=== PATIENT | female | born 1975 | race Asian ===

== ENCOUNTER 2020-01-18 22:17 | Inpatient (IN) | payer BC ==
[~2020-01-18] VITALS: Ht 162.6 cm; Wt 65.8 kg
[2020-01-18 22:24] VITALS: BP_SYST 148
--- NOTE | 2020-01-18 22:28 | NUR ---
Patient to ER bed 03 to gown for evaluation. Side rails up.
--- NOTE | 2020-01-18 22:30 | NUR ---
# 18 gauge angiocath placed to L AC. Use of asceptic technique. Opsite placed over site. Blood return noted. Blood for lab drawn from site. Flushed with 10 cc of normal saline. No evidence of infiltration noted. Patient tolerated well.
--- NOTE | 2020-01-18 22:30 | NUR ---
PATIENT PRESENTS TO ER WITH C/O BEING TOLD BY PRIMARY CARE DOCTOR TO REPORT TO ER FOR HEMOGLOBIN OF 6.1 THAT WAS DRAWN EARLIER TODAY. PATIENT STATES INCREASED FATIGUE, DIZZINESS AND WEAKNESS. PATIENT PRESENTS WITH PALENESS. PATIENT STATES SHE HAS HEAVY MENSTRAL PERIODS AND STATES SHE HAS RECIEVED A BLOOD TRANSFUSION 10 YEARS AGO. PATIENT CONNECTED TO DISPLAYER AND PLACED IN HOSPITAL GOWN. PATIENT A&OX4. GCS 15. BILATERAL PUPILS PERRLA. LUNGS CTAB WITH NO USE OF ACCESSORY MUSCLES. VSS. PATIENT DENIES NVD. PMSC NOTED IN ALL FOUR QUADRANTS. SKIN CLEAN DRY AND INTACT. BED LOCKED, IN LOWEST POSITION WITH SIDE RAILS UP FOR SAFETY. AWAITING FURTHER ORDERS AND WILL CONTINUE TO MONITOR.
--- NOTE | 2020-01-18 22:38 | NUR ---
ER Dr. ERAZO at bedside examining patient.
[2020-01-18] MEDS ORDERED: NACL 0.9% 1,000 ML IV ONE (22:46)
[2020-01-18 23:21] LABS: EOSINOPHILS # (AUTO) 0.1 K/uL (0.0-0.4); MEAN CORPUSCULAR VOLUME 59 fL (79.0-98.0); MONOCYTES # (AUTO) 0.5 K/uL (0.0-1.0); RED CELL DISTRIBUTION WIDTH 19.5 % (9.0-15.0)
[2020-01-18 23:28] LABS: BASOPHILS # (AUTO) 0.1 K/uL (0.0-0.2); BASOPHILS % (AUTO) 0.9 % (0.0-2.0); EOSINOPHILS % (AUTO) 0.7 % (0.0-4.0); LYMPHOCYTES # (AUTO) 1.6 K/uL (1.0-5.5); LYMPHOCYTES % (AUTO) 19.6 % (20.5-51.5); MEAN CORPUSCULAR HEMOGLOBIN 18 pg (27-31); MEAN CORPUSCULAR HGB CONC 30 % (32-36); MONOCYTES % (AUTO) 6.4 % (1.7-9.3); NEUTROPHILS # (AUTO) 5.8 K/uL (1.8-7.7); NEUTROPHILS % (AUTO) 72.4 % (40.0-70.0); PLATELET COUNT (AUTO) 453 K/uL (130-430); RED BLOOD CELL COUNT(AUTO) 3.63 MIL/uL (4.2-6.2)
[2020-01-18 23:32] LABS: HEMATOCRIT 21.3 % (36-48); HEMOGLOBIN 6.3 g/dL (12.0-16.0)
[2020-01-18 23:35] LABS: CALCIUM 8.2 mg/dL (8.4-11.0); CREATININE 0.72 mg/dL (0.55-1.30); POTASSIUM 3.6 mmol/L (3.5-5.1)
[2020-01-18 23:40] LABS: ALBUMIN 3.4 g/dL (3.4-4.8); TOTAL BILIRUBIN 0.4 mg/dL (0.0-1.0)
[2020-01-18 23:47] LABS: BILIRUBIN,URINE NEGATIVE (NEGATIVE); BLOOD, URINE NEGATIVE (NEGATIVE); CLARITY/URINE CLEAR (CLEAR); COLOR,URINE YELLOW (YELLOW); GLUCOSE,URINE NEGATIVE (NEGATIVE); KETONES,URINE NEGATIVE (NEGATIVE); LEUKOCYTE ESTERASE ,URINE NEGATIVE (NEGATIVE); NITRITE, URINE NEGATIVE (NEGATIVE); PH,URINE 7.5 (5.0-8.0); PROTEIN URINE NEGATIVE (NEGATIVE); UROBILINOGEN,URINE 0.2 (0.2-1.0)
--- NOTE | 2020-01-18 23:55 | NUR ---
BLOOD CONSENT FORM SIGNED BY PATIENT.
[2020-01-18 23:58] LABS: INR 0.9 (0.8-1.2); PROTHROMBIN TIME 8.9 SECS (9.5-12.5)
--- NOTE | 2020-01-19 00:40 | NUR ---
PATIENT INFORMED OF PATIENT BEING ADMITTED. 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
--- NOTE | 2020-01-19 01:01 | NUR ---
PATIENT WALKS WITH STEADY GAIT TO BATHROOM AND BACK TO [facility] WITH NO INCIDENT. 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
--- NOTE | 2020-01-19 02:20 | NUR ---
WARM BLANKET PROVIDED TO PATIENT FOR COMFORT.
--- NOTE | 2020-01-19 03:20 | NUR ---
Consent signed per DR. ERAZO AND PATIENT agreeing to administration of blood. Blood has been type and crossmatched. Blood sent from blood bank. Information on unit of blood checked against patient wristband at bedside by two nurses. All information matches. Patient or responsible green party informed of potential complications associated with blood transfusion. Informed of possible transfusion reaction symptoms. Aware of need to notify nurse at once of itching, shortness of breath, flushing, feeling of impending doom, or other symptoms not previously present. Vital signs taken within 5 minutes prior to initiation of transfusion. AMBER OBRIEN will remain with patient for first 15 minutes of transfusion at which time vital signs will be re-assessed.
--- NOTE | 2020-01-19 03:20 | NUR ---
PRE TRANSFUSION VITALS TEMP: 98.0 PULSE: 90 RESP: 18 BP: 141/86
--- NOTE | 2020-01-19 03:35 | NUR ---
15 MINUTES IN TRANSFUSION VITALS TEMP: 97.9 PULSE: 90 RESP: 18 BP: 130/82
--- NOTE | 2020-01-19 04:55 | NUR ---
BLOOD TRANSFUSION COMPLETE. POST TRANSFUSION VITALS STABLE.
--- NOTE | 2020-01-19 04:55 | NUR ---
POST TRANSFUSION VITALS TEMP: 98.0 PULSE: 89 RESP: 18 BP: 144/84
--- NOTE | 2020-01-19 05:50 | NUR ---
2ND UNIT OF BLOOD STARTED Consent signed per DR. ERAZO AND PATIENT agreeing to administration of blood. Blood has been type and crossmatched. Blood sent from blood bank. Information on unit of blood checked against patient wristband at bedside by two nurses. All information matches. Patient or responsible alliance party informed of potential complications associated with blood transfusion. Informed of possible transfusion reaction symptoms. Aware of need to notify nurse at once of itching, shortness of breath, flushing, feeling of impending doom, or other symptoms not previously present. Vital signs taken within 5 minutes prior to initiation of transfusion. RN will remain with patient for first 15 minutes of transfusion at which time vital signs will be re-assessed.
--- NOTE | 2020-01-19 05:50 | NUR ---
PRE 2ND TRANSFUSION VITALS TEMP: 97.8 PULSE: 84 RESP: 16 BP: 167/90
--- NOTE | 2020-01-19 06:05 | NUR ---
2ND 15 MINUTES INTO TRANSFUSION VITALS TEMP: 97.7 PULSE: 85 RESP: 15 BP: 167/90
--- NOTE | 2020-01-19 07:10 | NUR ---
ENDORSED ALL CARE TO AMBER AGUILAR.
--- NOTE | 2020-01-19 07:10 | NUR ---
PT AWAKE IN ROGERIO A&OX4, PRBC INFUSING
--- NOTE | 2020-01-19 07:50 | NUR ---
PRBC INFUSION COMPLETE
--- NOTE | 2020-01-19 08:45 | NUR ---
PT GIVEN HOSPITAL BREAKFAST TRAY
[2020-01-19 08:56] LABS: HEMATOCRIT 26.5 % (36-48); HEMOGLOBIN 8.2 g/dL (12.0-16.0)
[2020-01-19] MEDS ORDERED: DIPHENHYDRAMINE INJ 50 MG/ML VIAL IVP PRN (09:30)
[2020-01-19] MEDS ORDERED: ZOLPIDEM TARTRATE 5 MG TABLET PO PRN (09:30)
[2020-01-19] MEDS ORDERED: MULTIVITS,CA,MINERALS/IRON/FA 1 TABLET PO ONE (09:30)
[2020-01-19] MEDS ORDERED: ACETAMINOPHEN 325 MG TABLET PO PRN (09:30)
--- NOTE | 2020-01-19 09:56 | NUR ---
CONSULTATION PAGED/CALLED Reason for Consultation: [] VAGINAL BLEED Person Who was Notified: [] JP Consulting Physician: [] DR Regina MARTINS Train Gate Attendant Specialty: [] SUPERVISOR SPEECH Ordering Physician: [] DR OROSCO
[2020-01-19] MEDS ORDERED: SOD FERRIC GLUC COMPLEX/SUC 125 MG in NS 100 ML IV SCH (10:00)
--- NOTE | 2020-01-19 12:35 | NUR ---
ABISAI OROSCO at bedside examining patient.
--- NOTE | 2020-01-19 14:10 | NUR ---
PT to radiology for ultrasound
--- NOTE | 2020-01-19 14:11 | NUR ---
Radiology staff at for ultrasound
--- NOTE | 2020-01-19 15:16 | NUR ---
Dr. Garcia notified of consult. Will come see patient in ED
--- NOTE | 2020-01-19 15:18 | NUR ---
CONSULT CALLED CONSULT FOR DR MARTINS CALLED FOR VAG BLEED SPOKE WITH ERICK
--- NOTE | 2020-01-19 16:15 | NUR ---
Provider Calling: Dr. Young Reason for Call: discharge from ER Orders? discharge Comments: Follow-up with PMD in 1 week & follow-up with POTATO INSPECTOR in 1 week Rx on chart
--- NOTE | 2020-01-19 16:16 | NUR ---
Dr. Young via Telephone updated of pt, verified with patient prior to update.
[2020-01-19 16:45] VITALS: BP_SYST 144
--- NOTE | 2020-01-19 16:45 | NUR ---
Patient given written and verbal discharge instructions and verbalizes understanding. ER MD discussed with patient the results and treatment provided. Patient in stable condition. ID arm band removed. IV catheter removed intact and dressing applied, no active bleeding. Rx of multivitamin given. Patient educated on pain management and to follow up with PMD. Pain Scale 0/10 . Opportunity for questions provided and answered. Medication side effect fact sheet provided.
[2020-01-20] MEDS ORDERED: MULTIVITS,CA,MINERALS/IRON/FA 1 TABLET PO SCH (09:00)
== END 2020-01-19 16:45 | disposition home or self-care (01) | DRG 760 ==
LOC: SED 22:17 → SMU 01-19 02:20
PROVIDERS: ADMIT Internal Medicine; ATTEND Internal Medicine
PROC: 30233N1 Transfusion of Nonautologous Red Blood Cells into Peripheral Vein, Percutaneous Approach (ICD-10-PCS; principal; 2020-01-19)
DX: N92.0 Excessive and frequent menstruation with regular cycle (principal); D62 Acute posthemorrhagic anemia; I10 Essential (primary) hypertension; Z56.0 Unemployment, unspecified
CPT/HCPCS: 36415; 76856-TC; 80053; 81003; 85018-TC; 85025; 85610-TC; 86886; 86900; 86901; 86920; J2916; P9021